=== PATIENT | female | born 1950 ===

== ENCOUNTER 2020-09-20 05:55 | Day surgery (SDC) | payer OTHER ==
[2020-09-20] MEDS ORDERED: ULTRACET PO (13:30)
[2020-09-20] MEDS ORDERED: MACROBID 100 M100 MG PO (13:30)
== END 2020-09-20 16:10 | disposition home or self-care (01) ==
LOC: CIR.AMB 05:55
PROVIDERS: ATTEND Obstetrics & Gynecology Gynecology
DX: N81.3 Complete uterovaginal prolapse (principal); Z20.828 Contact with and (suspected) exposure to other viral communicable diseases